=== PATIENT | male | born 1990 | race African-American/Black ===

== ENCOUNTER 2022-09-10 16:40 | Inpatient (IN) | payer OTHER ==
[2022-09-10 17:56] VITALS: BMI 21.2
[2022-09-10] MEDS ORDERED: MAG HYDROX/AL HYDROX/SIMETH 30 ML UNIT-DOSE CUP PO PRN (20:18)
[2022-09-10] MEDS ORDERED: guaiFENesin 200 MG/10 ML 10 ML UNIT-DOSE CUPS PO PRN (20:18)
[2022-09-10] MEDS ORDERED: POLYETHYLENE GLYCOL (HEALTHYLAX) 3350 17 GM PACKET PO PRN (20:18)
[2022-09-10] MEDS ORDERED: BENZOCAINE/MENTHOL (CHLORASEPTIC ) LOZENGE MM PRN (20:18)
[2022-09-10] MEDS ORDERED: MAGNESIUM HYDROX 2400MG/30ML ORAL SUSPENSION 30 ML CUP PO PRN (20:18)
[2022-09-10] MEDS ORDERED: LOPERAMIDE HCL 2 MG CAPSULE PO PRN (20:18)
[2022-09-10] MEDS ORDERED: P-EPHED 60MG/TRIPROLIDI 2.5MG TABLET PO PRN (20:18)
[2022-09-10] MEDS ORDERED: ACETAMINOPHEN 325 MG TABLET (FP) PO PRN (20:18)
[2022-09-10] MEDS ORDERED: IBUPROFEN 400 MG TABLET (FP) PO PRN (20:18)
[2022-09-10] MEDS ORDERED: MELATONIN 5 MG TABLETS PO SCH (22:00)
[2022-09-10] MEDS ORDERED: TUBERCULIN PPD 5 TU/0.1ML VIAL ID ONE (23:53)
[2022-09-11] MEDS: THIAMINE HCL 100 MG TABLET (FP) PO SCH ×2 (00:03→21:15)
[2022-09-11] MEDS: NICOTINE 21 MG/24 HOURS TOPICAL PATCH TD SCH (11:01)
[2022-09-11] MEDS: PRENATAL VITAMINS W/ FOLIC ACID TABLET (FP) PO SCH (11:01)
[2022-09-11 11:04] LABS: EPI CELLS 14 /uL (0-25.1); HYALINE CASTS 6 /uL (0-3.1); PH,URINE 5.5 (5.0-8.0); URINE APPEARANCE CLEAR; URINE BACTERIA 66 /uL (0-1359); URINE BILIRUBIN 1+ (NEGATIVE); URINE COLOR DK YELLOW; URINE GLUCOSE (UA) NEGATIVE (NEGATIVE); URINE KETONE TRACE (NEGATIVE); URINE LEUK ESTERASE NEGATIVE (NEGATIVE); URINE NITRITE NEGATIVE (NEGATIVE); URINE PROTEIN 3+ (NEGATIVE); URINE RBC 28 /uL (0-23.9); URINE WBC 40 /uL (0-25.8)
[2022-09-11 11:06] LABS: MCH 30.7 pg (25.7-33.7); MCHC 32.6 g/dl (32.0-35.9); MEAN CELL VOLUME 94.2 fl (80-96); MEAN PLT VOLUME 10.9 fl (7.5-11.1); PLATELET COUNT 200 10^3/uL (134-434); RBC 4.25 M/mm3 (4.00-5.60); RDW 13.1 % (11.9-15.9); WHITE BLOOD COUNT 9.8 K/mm3 (4.0-10.0)
[2022-09-11 11:12] LABS: ALBUMIN 3.4 g/dl (3.4-5.0); CALCIUM 8.8 mg/dL (8.5-10.1)
[2022-09-11 11:18] LABS: BILIRUBIN,TOTAL 1.1 mg/dL (0.2-1); TOT PROT 7.5 g/dl (6.4-8.2)
[2022-09-11 12:16] LABS: SYPHILIS W/ RPR CONF NON-REACTIVE (NONREACTIVE)
[2022-09-11] MEDS: hydrOXYzine PAMOATE 25 MG CAPSULE (FP) PO PRN (21:15)
[2022-09-11] MEDS: MELATONIN 5 MG TABLETS PO SCH (21:15)
[2022-09-11] MEDS: NICOTINE POLACRILEX 2 MG GUM BC PRN (21:17)
[2022-09-12] MEDS: PRENATAL VITAMINS W/ FOLIC ACID TABLET (FP) PO SCH (09:34)
[2022-09-12] MEDS: NICOTINE 21 MG/24 HOURS TOPICAL PATCH TD SCH (09:34)
[2022-09-12] MEDS: NICOTINE 10 MG CARTRIDGE (INHALER) IH PRN (12:15)
[2022-09-12] MEDS: ARTIFICIAL TEARS (POLYVINYL ALCOHOL) OPTH DROPS OU PRN ×2 (12:15→21:29)
[2022-09-12] MEDS: MELATONIN 5 MG TABLETS PO SCH (21:27)
[2022-09-12] MEDS: THIAMINE HCL 100 MG TABLET (FP) PO SCH (21:27)
[2022-09-12] MEDS: hydrOXYzine PAMOATE 25 MG CAPSULE (FP) PO PRN (21:27)
[2022-09-13] MEDS: PRENATAL VITAMINS W/ FOLIC ACID TABLET (FP) PO SCH (09:53)
[2022-09-13] MEDS: ARTIFICIAL TEARS (POLYVINYL ALCOHOL) OPTH DROPS OU PRN (09:53)
[2022-09-13] MEDS: NICOTINE 21 MG/24 HOURS TOPICAL PATCH TD SCH (09:54)
[2022-09-13] MEDS: NICOTINE 10 MG CARTRIDGE (INHALER) IH PRN (09:55)
[2022-09-13] MEDS: THIAMINE HCL 100 MG TABLET (FP) PO SCH (21:24)
[2022-09-13] MEDS: hydrOXYzine PAMOATE 25 MG CAPSULE (FP) PO PRN (21:24)
[2022-09-13] MEDS: MELATONIN 5 MG TABLETS PO SCH (21:24)
[2022-09-14] MEDS: PRENATAL VITAMINS W/ FOLIC ACID TABLET (FP) PO SCH (09:47)
[2022-09-14] MEDS: NICOTINE 21 MG/24 HOURS TOPICAL PATCH TD SCH (09:47)
[2022-09-14] MEDS: NICOTINE 10 MG CARTRIDGE (INHALER) IH PRN (09:47)
[2022-09-14] MEDS: THIAMINE HCL 100 MG TABLET (FP) PO SCH (21:16)
[2022-09-14] MEDS: MELATONIN 5 MG TABLETS PO SCH (21:16)
[2022-09-14] MEDS: hydrOXYzine PAMOATE 25 MG CAPSULE (FP) PO PRN (21:17)
[2022-09-15] MEDS: NICOTINE 21 MG/24 HOURS TOPICAL PATCH TD SCH (09:33)
[2022-09-15] MEDS: NICOTINE 10 MG CARTRIDGE (INHALER) IH PRN (09:33)
[2022-09-15] MEDS: PRENATAL VITAMINS W/ FOLIC ACID TABLET (FP) PO SCH (09:33)
[2022-09-15] MEDS: hydrOXYzine PAMOATE 25 MG CAPSULE (FP) PO PRN (21:24)
[2022-09-15] MEDS: THIAMINE HCL 100 MG TABLET (FP) PO SCH (21:24)
[2022-09-15] MEDS: MELATONIN 5 MG TABLETS PO SCH (21:25)
[2022-09-15] MEDS: ARTIFICIAL TEARS (POLYVINYL ALCOHOL) OPTH DROPS OU PRN (21:26)
[2022-09-16] MEDS: PRENATAL VITAMINS W/ FOLIC ACID TABLET (FP) PO SCH (09:44)
[2022-09-16] MEDS: ARTIFICIAL TEARS (POLYVINYL ALCOHOL) OPTH DROPS OU PRN (09:44)
[2022-09-16] MEDS: NICOTINE 21 MG/24 HOURS TOPICAL PATCH TD SCH (09:44)
[2022-09-16] MEDS: MELATONIN 5 MG TABLETS PO SCH (21:16)
[2022-09-16] MEDS: THIAMINE HCL 100 MG TABLET (FP) PO SCH (21:16)
[2022-09-16] MEDS: hydrOXYzine PAMOATE 25 MG CAPSULE (FP) PO PRN (21:16)
[2022-09-17] MEDS: PRENATAL VITAMINS W/ FOLIC ACID TABLET (FP) PO SCH (09:36)
[2022-09-17] MEDS: NICOTINE 21 MG/24 HOURS TOPICAL PATCH TD SCH (09:36)
[2022-09-17] MEDS: NICOTINE POLACRILEX 2 MG GUM BC PRN (09:37)
[2022-09-17] MEDS: ARTIFICIAL TEARS (POLYVINYL ALCOHOL) OPTH DROPS OU PRN (09:37)
[2022-09-17] MEDS: MELATONIN 5 MG TABLETS PO SCH (21:29)
[2022-09-17] MEDS: THIAMINE HCL 100 MG TABLET (FP) PO SCH (21:29)
[2022-09-17] MEDS: hydrOXYzine PAMOATE 25 MG CAPSULE (FP) PO PRN (21:30)
[2022-09-18] MEDS: ARTIFICIAL TEARS (POLYVINYL ALCOHOL) OPTH DROPS OU PRN ×2 (06:53→21:43)
[2022-09-18] MEDS: NICOTINE 21 MG/24 HOURS TOPICAL PATCH TD SCH (09:38)
[2022-09-18] MEDS: PRENATAL VITAMINS W/ FOLIC ACID TABLET (FP) PO SCH (09:38)
[2022-09-18] MEDS: NICOTINE 10 MG CARTRIDGE (INHALER) IH PRN ×2 (09:40→21:42)
[2022-09-18] MEDS: THIAMINE HCL 100 MG TABLET (FP) PO SCH (21:42)
[2022-09-18] MEDS: hydrOXYzine PAMOATE 25 MG CAPSULE (FP) PO PRN (21:42)
[2022-09-18] MEDS: MELATONIN 5 MG TABLETS PO SCH (21:42)
[2022-09-19] MEDS: ARTIFICIAL TEARS (POLYVINYL ALCOHOL) OPTH DROPS OU PRN ×2 (09:44→21:20)
[2022-09-19] MEDS: PRENATAL VITAMINS W/ FOLIC ACID TABLET (FP) PO SCH (09:44)
[2022-09-19] MEDS: NICOTINE 21 MG/24 HOURS TOPICAL PATCH TD SCH (09:45)
[2022-09-19] MEDS: hydrOXYzine PAMOATE 25 MG CAPSULE (FP) PO PRN (21:19)
[2022-09-19] MEDS: MELATONIN 5 MG TABLETS PO SCH (21:19)
[2022-09-19] MEDS: THIAMINE HCL 100 MG TABLET (FP) PO SCH (21:19)
[2022-09-20] MEDS: PRENATAL VITAMINS W/ FOLIC ACID TABLET (FP) PO SCH (09:49)
[2022-09-20] MEDS: NICOTINE 21 MG/24 HOURS TOPICAL PATCH TD SCH (09:49)
[2022-09-20] MEDS: ARTIFICIAL TEARS (POLYVINYL ALCOHOL) OPTH DROPS OU PRN (09:49)
[2022-09-20] MEDS: NICOTINE 10 MG CARTRIDGE (INHALER) IH PRN ×2 (09:51→21:26)
[2022-09-20] MEDS: MELATONIN 5 MG TABLETS PO SCH (21:26)
[2022-09-20] MEDS: THIAMINE HCL 100 MG TABLET (FP) PO SCH (21:26)
[2022-09-20] MEDS: hydrOXYzine PAMOATE 25 MG CAPSULE (FP) PO PRN (21:27)
[2022-09-21] MEDS: NICOTINE 10 MG CARTRIDGE (INHALER) IH PRN (09:32)
[2022-09-21] MEDS: PRENATAL VITAMINS W/ FOLIC ACID TABLET (FP) PO SCH (09:32)
[2022-09-21] MEDS: NICOTINE 21 MG/24 HOURS TOPICAL PATCH TD SCH (09:32)
[2022-09-21] MEDS: ARTIFICIAL TEARS (POLYVINYL ALCOHOL) OPTH DROPS OU PRN ×2 (09:32→21:16)
[2022-09-21] MEDS: THIAMINE HCL 100 MG TABLET (FP) PO SCH (21:15)
[2022-09-21] MEDS: hydrOXYzine PAMOATE 25 MG CAPSULE (FP) PO PRN (21:15)
[2022-09-21] MEDS: MELATONIN 5 MG TABLETS PO SCH (21:15)
[2022-09-22] MEDS: PRENATAL VITAMINS W/ FOLIC ACID TABLET (FP) PO SCH (09:36)
[2022-09-22] MEDS: NICOTINE 21 MG/24 HOURS TOPICAL PATCH TD SCH (09:36)
[2022-09-22] MEDS: NICOTINE 10 MG CARTRIDGE (INHALER) IH PRN (09:37)
[2022-09-22] MEDS: ARTIFICIAL TEARS (POLYVINYL ALCOHOL) OPTH DROPS OU PRN ×2 (09:37→21:34)
[2022-09-22] MEDS: THIAMINE HCL 100 MG TABLET (FP) PO SCH (21:31)
[2022-09-22] MEDS: hydrOXYzine PAMOATE 25 MG CAPSULE (FP) PO PRN (21:31)
[2022-09-22] MEDS: MELATONIN 5 MG TABLETS PO SCH (21:31)
[2022-09-23] MEDS: PRENATAL VITAMINS W/ FOLIC ACID TABLET (FP) PO SCH (09:39)
[2022-09-23] MEDS: ARTIFICIAL TEARS (POLYVINYL ALCOHOL) OPTH DROPS OU PRN ×2 (09:39→21:30)
[2022-09-23] MEDS: NICOTINE 21 MG/24 HOURS TOPICAL PATCH TD SCH (09:40)
[2022-09-23] MEDS: NICOTINE 10 MG CARTRIDGE (INHALER) IH PRN (09:40)
[2022-09-23] MEDS: THIAMINE HCL 100 MG TABLET (FP) PO SCH (21:29)
[2022-09-23] MEDS: MELATONIN 5 MG TABLETS PO SCH (21:29)
[2022-09-23] MEDS: hydrOXYzine PAMOATE 25 MG CAPSULE (FP) PO PRN (21:29)
[2022-09-24] MEDS: NICOTINE 21 MG/24 HOURS TOPICAL PATCH TD SCH (09:03)
[2022-09-24] MEDS: ARTIFICIAL TEARS (POLYVINYL ALCOHOL) OPTH DROPS OU PRN ×2 (09:03→21:16)
[2022-09-24] MEDS: PRENATAL VITAMINS W/ FOLIC ACID TABLET (FP) PO SCH (09:03)
[2022-09-24] MEDS ORDERED: NICOTINE 21 MG/24 HOURS TOPICAL PATCH TD PRN (12:39)
[2022-09-24] MEDS: hydrOXYzine PAMOATE 25 MG CAPSULE (FP) PO PRN (21:15)
[2022-09-24] MEDS: THIAMINE HCL 100 MG TABLET (FP) PO SCH (21:15)
[2022-09-24] MEDS: MELATONIN 5 MG TABLETS PO SCH (21:15)
[2022-09-25] MEDS: ARTIFICIAL TEARS (POLYVINYL ALCOHOL) OPTH DROPS OU PRN (09:53)
[2022-09-25] MEDS: PRENATAL VITAMINS W/ FOLIC ACID TABLET (FP) PO SCH (09:53)
[2022-09-25] MEDS: THIAMINE HCL 100 MG TABLET (FP) PO SCH (21:30)
[2022-09-25] MEDS: MELATONIN 5 MG TABLETS PO SCH (21:30)
[2022-09-26 06:35] VITALS: RESP 16
[2022-09-26] MEDS: ARTIFICIAL TEARS (POLYVINYL ALCOHOL) OPTH DROPS OU PRN ×2 (09:45→21:53)
[2022-09-26] MEDS: NICOTINE 10 MG CARTRIDGE (INHALER) IH PRN (09:45)
[2022-09-26] MEDS: PRENATAL VITAMINS W/ FOLIC ACID TABLET (FP) PO SCH (09:45)
[2022-09-26] MEDS: hydrOXYzine PAMOATE 25 MG CAPSULE (FP) PO PRN (21:51)
[2022-09-26] MEDS: MELATONIN 5 MG TABLETS PO SCH (21:51)
[2022-09-26] MEDS: THIAMINE HCL 100 MG TABLET (FP) PO SCH (21:51)
[2022-09-27] MEDS: ARTIFICIAL TEARS (POLYVINYL ALCOHOL) OPTH DROPS OU PRN ×2 (09:30→21:32)
[2022-09-27] MEDS: PRENATAL VITAMINS W/ FOLIC ACID TABLET (FP) PO SCH (09:30)
[2022-09-27] MEDS: NICOTINE 10 MG CARTRIDGE (INHALER) IH PRN (10:30)
[2022-09-27] MEDS: THIAMINE HCL 100 MG TABLET (FP) PO SCH (21:31)
[2022-09-27] MEDS: MELATONIN 5 MG TABLETS PO SCH (21:31)
[2022-09-27] MEDS: hydrOXYzine PAMOATE 25 MG CAPSULE (FP) PO PRN (21:31)
[2022-09-28] MEDS: ARTIFICIAL TEARS (POLYVINYL ALCOHOL) OPTH DROPS OU PRN ×2 (10:01→21:22)
[2022-09-28] MEDS: PRENATAL VITAMINS W/ FOLIC ACID TABLET (FP) PO SCH (10:01)
[2022-09-28] MEDS: NICOTINE POLACRILEX 2 MG GUM BC PRN (17:00)
[2022-09-28] MEDS: NICOTINE 10 MG CARTRIDGE (INHALER) IH PRN (17:00)
[2022-09-28] MEDS: hydrOXYzine PAMOATE 25 MG CAPSULE (FP) PO PRN (21:21)
[2022-09-28] MEDS: THIAMINE HCL 100 MG TABLET (FP) PO SCH (21:21)
[2022-09-28] MEDS: MELATONIN 5 MG TABLETS PO SCH (21:21)
[2022-09-29 07:06] VITALS: BP 120/74; PULSE 73; TEMP 98.4
[2022-09-29] MEDS: PRENATAL VITAMINS W/ FOLIC ACID TABLET (FP) PO SCH (09:33)
[2022-09-29] MEDS: ARTIFICIAL TEARS (POLYVINYL ALCOHOL) OPTH DROPS OU PRN (09:34)
[2022-09-29] MEDS: THIAMINE HCL 100 MG TABLET (FP) PO SCH (21:39)
[2022-09-29] MEDS: MELATONIN 5 MG TABLETS PO SCH (21:39)
[2022-09-29] MEDS: hydrOXYzine PAMOATE 25 MG CAPSULE (FP) PO PRN (21:39)
== END 2022-09-30 08:56 | disposition home or self-care (01) | DRG 772 ==
LOC: YASAS 16:40 → Y3E 23:33
PROVIDERS: ADMIT Allergy & Immunology; ATTEND Psychiatry & Neurology Pain Medicine
PROC: HZ42ZZZ Group Counseling for Substance Abuse Treatment, Cognitive-Behavioral (ICD-10-PCS; principal; 2022-09-10)
DX: F10.20 Alcohol dependence, uncomplicated (principal); F17.210 Nicotine dependence, cigarettes, uncomplicated; F10.282 Alcohol dependence with alcohol-induced sleep disorder; F19.24 Other psychoactive substance dependence with psychoactive substance-induced mood disorder; H11.32 Conjunctival hemorrhage, left eye; Y04.8XXD Assault by other bodily force, subsequent encounter; Z56.0 Unemployment, unspecified; Z59.00 Homelessness unspecified
CPT/HCPCS: 36415; 80053; 81003; 82962; 85027; 86780; 86803; 93005; 93010; C9803-CS; U0003; U0005

== ENCOUNTER 2023-04-17 21:49 | Inpatient (IN) | payer OTHER ==
[2023-04-17 22:39] VITALS: BMI 23.4
[2023-04-17] MEDS ORDERED: IBUPROFEN 600 MG TABLET (FP) PO PRN (22:55)
[2023-04-17] MEDS ORDERED: ACETAMINOPHEN 325 MG TABLET (FP) PO PRN (22:55)
[2023-04-17] MEDS ORDERED: NALOXONE HCL 0.4 MG/ML VIAL IM PRN (22:55)
[2023-04-17] MEDS ORDERED: NALOXONE HCL (KLOXXADO) 8 MG SPRAY NS PRN (22:55)
[2023-04-17] MEDS ORDERED: BENZOCAINE/MENTHOL (CHLORASEPTIC ) LOZENGE MM PRN (22:55)
[2023-04-17] MEDS ORDERED: METHOCARBAMOL 500 MG TABLET PO PRN (22:55)
[2023-04-17] MEDS ORDERED: MAGNESIUM HYDROX 2400MG/30ML ORAL SUSPENSION 30 ML CUP PO PRN (22:55)
[2023-04-17] MEDS ORDERED: NICOTINE POLACRILEX 2 MG GUM BUC PRN (22:55)
[2023-04-17] MEDS ORDERED: LOPERAMIDE HCL 2 MG CAPSULE PO PRN (22:55)
[2023-04-17] MEDS ORDERED: BISMUTH SUBSALICYLATE 524 MG/30 ML PO PRN (22:55)
[2023-04-17] MEDS ORDERED: DICYCLOMINE HCL 10 MG CAPSULE PO PRN (22:55)
[2023-04-17] MEDS ORDERED: ONDANSETRON *ODT* 4 MG TABLET SL PRN (22:55)
[2023-04-17] MEDS ORDERED: POLYETHYLENE GLYCOL (HEALTHYLAX) 3350 17 GM PACKET PO PRN (22:55)
[2023-04-17] MEDS ORDERED: IBUPROFEN 400 MG TABLET (FP) PO PRN (22:55)
[2023-04-17] MEDS ORDERED: MAG HYDROX/AL HYDROX/SIMETH 30 ML UNIT-DOSE CUP PO PRN (22:55)
[2023-04-17] MEDS ORDERED: BENZONATATE 200 MG CAPSULE PO PRN (22:55)
[2023-04-17] MEDS ORDERED: guaiFENesin 600 MG TABLET.ER (FP) PO PRN (22:55)
[2023-04-18] MEDS ORDERED: LORazepam 1 MG TABLET PO PRN (10:05)
[2023-04-18] MEDS: NICOTINE 14 MG/24 HOURS TOPICAL PATCH TD SCH (10:36)
[2023-04-18] MEDS: PRENATAL VITAMINS W/ FOLIC ACID TABLET (FP) PO SCH (10:36)
[2023-04-18] MEDS: hydrOXYzine PAMOATE 25 MG CAPSULE (FP) PO PRN (10:36)
[2023-04-18] MEDS: LORazepam 2 MG TABLET PO SCH ×3 (10:37→22:11)
[2023-04-18 11:42] LABS: POTASSIUM 4.1 mmol/L (3.5-5.1)
[2023-04-18 11:46] LABS: CALCIUM 8.8 mg/dL (8.5-10.1)
[2023-04-18 11:47] LABS: ALBUMIN 3.8 g/dl (3.4-5.0); BLOOD UREA NITROGEN 12.2 mg/dL (7-18)
[2023-04-18 11:48] LABS: HEMATOCRIT 37.8 % (35.4-49); HEMOGLOBIN 12.5 GM/dL (11.7-16.9); MCH 30.9 pg (25.7-33.7); MEAN CELL VOLUME 93.5 fl (80-96); MEAN PLT VOLUME 10.5 fl (7.5-11.1); PLATELET COUNT 166 10^3/uL (134-434); RBC 4.04 M/mm3 (4.00-5.60); RDW 12.9 % (11.9-15.9); WHITE BLOOD COUNT 4.2 K/mm3 (4.0-10.0)
[2023-04-18 11:50] LABS: BILIRUBIN,TOTAL 1.3 mg/dL (0.2-1); CREATININE 0.9 mg/dL (0.55-1.3); TOT PROT 7.4 g/dl (6.4-8.2)
[2023-04-18] MEDS ORDERED: THIAMINE HCL 100 MG TABLET (FP) PO SCH (22:00)
[2023-04-18] MEDS ORDERED: MELATONIN 5 MG TABLETS PO SCH (22:00)
[2023-04-19] MEDS: LORazepam 1 MG TABLET PO SCH ×2 (06:12→11:12)
[2023-04-19] MEDS: hydrOXYzine PAMOATE 25 MG CAPSULE (FP) PO PRN (10:40)
[2023-04-19] MEDS: PRENATAL VITAMINS W/ FOLIC ACID TABLET (FP) PO SCH (10:40)
[2023-04-19] MEDS: NICOTINE 14 MG/24 HOURS TOPICAL PATCH TD SCH (10:40)
[2023-04-19 13:41] VITALS: RESP 18
[2023-04-19 17:46] VITALS: BP 149/82; PULSE 64; TEMP 98.7
[2023-04-20] MEDS ORDERED: LORazepam 0.5 MG TABLET PO PRN
[2023-04-20] MEDS ORDERED: LORazepam 0.5 MG TABLET PO SCH (05:00)
[2023-04-21] MEDS ORDERED: LORazepam 0.5 MG TABLET PO ONE (05:00)
== END 2023-04-19 13:22 | disposition home or self-care (01) | DRG 775 ==
LOC: YASAS 21:49 → Y6N 22:56
PROVIDERS: ADMIT Allergy & Immunology; ATTEND Allergy & Immunology
PROC: HZ2ZZZZ Detoxification Services for Substance Abuse Treatment (ICD-10-PCS; principal; 2023-04-17)
DX: F10.230 Alcohol dependence with withdrawal, uncomplicated (principal); F10.220 Alcohol dependence with intoxication, uncomplicated; F17.213 Nicotine dependence, cigarettes, with withdrawal
CPT/HCPCS: 36415; 80053; 85027; 86780; 87635; 87811

== ENCOUNTER 2023-05-27 08:42 | Inpatient (IN) | payer OTHER ==
[2023-05-27 09:25] VITALS: BMI 22.1
[2023-05-27] MEDS ORDERED: DICYCLOMINE HCL 10 MG CAPSULE PO PRN (09:31)
[2023-05-27] MEDS ORDERED: LOPERAMIDE HCL 2 MG CAPSULE PO PRN (09:31)
[2023-05-27] MEDS ORDERED: BENZONATATE 200 MG CAPSULE PO PRN (09:31)
[2023-05-27] MEDS ORDERED: guaiFENesin 600 MG TABLET.ER (FP) PO PRN (09:31)
[2023-05-27] MEDS ORDERED: ACETAMINOPHEN 325 MG TABLET (FP) PO PRN (09:31)
[2023-05-27] MEDS ORDERED: NICOTINE POLACRILEX 2 MG GUM BUC PRN (09:31)
[2023-05-27] MEDS ORDERED: IBUPROFEN 600 MG TABLET (FP) PO PRN (09:31)
[2023-05-27] MEDS ORDERED: IBUPROFEN 400 MG TABLET (FP) PO PRN (09:31)
[2023-05-27] MEDS ORDERED: BISMUTH SUBSALICYLATE 524 MG/30 ML PO PRN (09:31)
[2023-05-27] MEDS ORDERED: ONDANSETRON *ODT* 4 MG TABLET SL PRN (09:31)
[2023-05-27] MEDS ORDERED: MAG HYDROX/AL HYDROX/SIMETH 30 ML UNIT-DOSE CUP PO PRN (09:31)
[2023-05-27] MEDS ORDERED: BENZOCAINE/MENTHOL (CHLORASEPTIC ) LOZENGE MM PRN (09:31)
[2023-05-27] MEDS ORDERED: POLYETHYLENE GLYCOL (HEALTHYLAX) 3350 17 GM PACKET PO PRN (09:31)
[2023-05-27] MEDS ORDERED: MAGNESIUM HYDROX 2400MG/30ML ORAL SUSPENSION 30 ML CUP PO PRN (09:31)
[2023-05-27] MEDS ORDERED: diazePAM 5 MG TABLET ONE (10:19)
[2023-05-27] MEDS ORDERED: PRENATAL VITAMINS W/ FOLIC ACID TABLET (FP) PO ONE (10:19)
[2023-05-27] MEDS: diazePAM 5 MG TABLET PO SCH ×3 (10:22→22:16)
[2023-05-27] MEDS: PRENATAL VITAMINS W/ FOLIC ACID TABLET (FP) PO SCH (10:22)
[2023-05-27] MEDS: diazePAM 5 MG TABLET PO PRN (12:55)
[2023-05-27] MEDS ORDERED: cloNIDine HCL 0.1 MG TABLET PO ONE (13:00)
[2023-05-27] MEDS ORDERED: THIAMINE HCL 100 MG TABLET (FP) PO SCH (22:00)
[2023-05-27] MEDS ORDERED: MELATONIN 5 MG TABLETS PO SCH (22:00)
[2023-05-28] MEDS: diazePAM 5 MG TABLET PO SCH ×3 (05:12→18:20)
[2023-05-28] MEDS: PRENATAL VITAMINS W/ FOLIC ACID TABLET (FP) PO SCH (10:30)
[2023-05-28 11:57] LABS: HEMOGLOBIN 12.9 GM/dL (11.7-16.9); MCH 31.9 pg (25.7-33.7); MCHC 33.9 g/dl (32.0-35.9); MEAN CELL VOLUME 94.1 fl (80-96); MEAN PLT VOLUME 9.7 fl (7.5-11.1); PLATELET COUNT 232 10^3/uL (134-434); RBC 4.03 M/mm3 (4.00-5.60); RDW 13.4 % (11.9-15.9); WHITE BLOOD COUNT 3.5 K/mm3 (4.0-10.0)
[2023-05-28 12:03] LABS: POTASSIUM 4.5 mmol/L (3.5-5.1)
[2023-05-28 12:18] LABS: CALCIUM 8.9 mg/dL (8.5-10.1)
[2023-05-28 12:19] LABS: ALBUMIN 3.4 g/dl (3.4-5.0); BLOOD UREA NITROGEN 9.7 mg/dL (7-18)
[2023-05-28 12:21] LABS: CREATININE 0.9 mg/dL (0.55-1.3)
[2023-05-28 12:23] LABS: BILIRUBIN,TOTAL 1.3 mg/dL (0.2-1); TOT PROT 7.2 g/dl (6.4-8.2)
[2023-05-28 12:56] VITALS: RESP 18
[2023-05-28] MEDS: diazePAM 5 MG TABLET PO PRN (13:14)
[2023-05-28 18:16] VITALS: BP 138/65; PULSE 63; TEMP 97.6
[2023-05-29] MEDS ORDERED: diazePAM 5 MG TABLET PO SCH (06:00)
[2023-05-30] MEDS ORDERED: diazePAM 5 MG TABLET PO SCH (06:00)
[2023-05-31] MEDS ORDERED: diazePAM 5 MG TABLET PO ONE (06:00)
== END 2023-05-28 18:27 | disposition left against medical advice (07) | DRG 770 ==
LOC: YASAS 08:42 → Y6N 09:54
PROVIDERS: ADMIT Allergy & Immunology; ATTEND Surgery
PROC: HZ2ZZZZ Detoxification Services for Substance Abuse Treatment (ICD-10-PCS; principal; 2023-05-27)
DX: F10.230 Alcohol dependence with withdrawal, uncomplicated (principal); F17.210 Nicotine dependence, cigarettes, uncomplicated; R74.01 Elevation of levels of liver transaminase levels
CPT/HCPCS: 36415; 80053; 85027; 86780; 87635; 87811; Q0162

== ENCOUNTER 2023-06-05 23:42 | Inpatient (IN) | payer OTHER ==
[2023-06-06 00:35] VITALS: BMI 20.5
[2023-06-06] MEDS ORDERED: POLYETHYLENE GLYCOL (HEALTHYLAX) 3350 17 GM PACKET PO PRN (01:38)
[2023-06-06] MEDS ORDERED: DICYCLOMINE HCL 10 MG CAPSULE PO PRN (01:38)
[2023-06-06] MEDS ORDERED: BENZOCAINE/MENTHOL (CHLORASEPTIC ) LOZENGE MM PRN (01:38)
[2023-06-06] MEDS ORDERED: BISMUTH SUBSALICYLATE 524 MG/30 ML PO PRN (01:38)
[2023-06-06] MEDS ORDERED: guaiFENesin 600 MG TABLET.ER (FP) PO PRN (01:38)
[2023-06-06] MEDS ORDERED: ACETAMINOPHEN 325 MG TABLET (FP) PO PRN (01:38)
[2023-06-06] MEDS ORDERED: LOPERAMIDE HCL 2 MG CAPSULE PO PRN (01:38)
[2023-06-06] MEDS ORDERED: IBUPROFEN 400 MG TABLET (FP) PO PRN (01:38)
[2023-06-06] MEDS ORDERED: MAGNESIUM HYDROX 2400MG/30ML ORAL SUSPENSION 30 ML CUP PO PRN (01:38)
[2023-06-06] MEDS ORDERED: IBUPROFEN 600 MG TABLET (FP) PO PRN (01:38)
[2023-06-06] MEDS ORDERED: BENZONATATE 200 MG CAPSULE PO PRN (01:38)
[2023-06-06] MEDS ORDERED: NALOXONE HCL (KLOXXADO) 8 MG SPRAY NS PRN (01:38)
[2023-06-06] MEDS ORDERED: MAG HYDROX/AL HYDROX/SIMETH 30 ML UNIT-DOSE CUP PO PRN (01:38)
[2023-06-06] MEDS ORDERED: NALOXONE HCL 0.4 MG/ML VIAL IM PRN (01:38)
[2023-06-06] MEDS: PRENATAL VITAMINS W/ FOLIC ACID TABLET (FP) PO SCH (10:51)
[2023-06-06] MEDS: ONDANSETRON *ODT* 4 MG TABLET SL PRN ×2 (11:13→20:30)
[2023-06-06] MEDS: hydrOXYzine PAMOATE 25 MG CAPSULE (FP) PO PRN ×2 (11:13→18:22)
[2023-06-06] MEDS: METHOCARBAMOL 500 MG TABLET PO PRN (11:13)
[2023-06-06] MEDS ORDERED: THIAMINE HCL 100 MG TABLET (FP) PO SCH (22:00)
[2023-06-06] MEDS ORDERED: MELATONIN 5 MG TABLETS PO SCH (22:00)
[2023-06-07 06:17] VITALS: RESP 18
[2023-06-07 09:36] VITALS: TEMP 97.7
[2023-06-07] MEDS: hydrOXYzine PAMOATE 25 MG CAPSULE (FP) PO PRN (09:48)
[2023-06-07] MEDS: PRENATAL VITAMINS W/ FOLIC ACID TABLET (FP) PO SCH (09:48)
[2023-06-07] MEDS: METHOCARBAMOL 500 MG TABLET PO PRN (09:48)
[2023-06-07 10:45] VITALS: BP 130/80; PULSE 70
[2023-06-07 13:03] LABS: HEMOGLOBIN 14.3 GM/dL (11.7-16.9); MCH 32.4 pg (25.7-33.7); MCHC 34.9 g/dl (32.0-35.9); MEAN CELL VOLUME 92.9 fl (80-96); MEAN PLT VOLUME 9.8 fl (7.5-11.1); PLATELET COUNT 204 10^3/uL (134-434); RBC 4.41 M/mm3 (4.00-5.60); WHITE BLOOD COUNT 3.3 K/mm3 (4.0-10.0)
[2023-06-07 13:05] LABS: POTASSIUM 3.9 mmol/L (3.5-5.1)
[2023-06-07 13:10] LABS: CALCIUM 9.3 mg/dL (8.5-10.1)
[2023-06-07 13:11] LABS: ALBUMIN 3.7 g/dl (3.4-5.0); BLOOD UREA NITROGEN 9.3 mg/dL (7-18)
[2023-06-07 13:14] LABS: BILIRUBIN,TOTAL 1.9 mg/dL (0.2-1); TOT PROT 7.9 g/dl (6.4-8.2)
== END 2023-06-07 10:46 | disposition home or self-care (01) | DRG 775 ==
LOC: YASAS 23:42 → Y6N 06-06 02:14
PROVIDERS: ADMIT Allergy & Immunology; ATTEND Surgery
PROC: HZ2ZZZZ Detoxification Services for Substance Abuse Treatment (ICD-10-PCS; principal; 2023-06-06)
DX: F10.20 Alcohol dependence, uncomplicated (principal); F17.213 Nicotine dependence, cigarettes, with withdrawal
CPT/HCPCS: 36415; 80053; 85027; 87635; 87811; 93005; 93010; Q0162

== ENCOUNTER 2024-01-03 02:12 | Inpatient (IN) | payer OTHER ==
[2024-01-03 02:46] VITALS: BMI 25.5
[2024-01-03] MEDS ORDERED: DICYCLOMINE HCL 10 MG CAPSULE PO PRN (03:32)
[2024-01-03] MEDS ORDERED: guaiFENesin 600 MG TABLET.ER (FP) PO PRN (03:32)
[2024-01-03] MEDS ORDERED: NALOXONE HCL (KLOXXADO) 8 MG SPRAY NS PRN (03:32)
[2024-01-03] MEDS ORDERED: MAGNESIUM HYDROX 2400MG/30ML ORAL SUSPENSION 30 ML CUP PO PRN (03:32)
[2024-01-03] MEDS ORDERED: IBUPROFEN 600 MG TABLET (FP) PO PRN (03:32)
[2024-01-03] MEDS ORDERED: NICOTINE POLACRILEX 2 MG GUM BUC PRN (03:32)
[2024-01-03] MEDS ORDERED: METHOCARBAMOL 500 MG TABLET PO PRN (03:32)
[2024-01-03] MEDS ORDERED: BISMUTH SUBSALICYLATE 524 MG/30 ML PO PRN (03:32)
[2024-01-03] MEDS ORDERED: MAG HYDROX/AL HYDROX/SIMETH 30 ML UNIT-DOSE CUP PO PRN (03:32)
[2024-01-03] MEDS ORDERED: BENZONATATE 200 MG CAPSULE PO PRN (03:32)
[2024-01-03] MEDS ORDERED: POLYETHYLENE GLYCOL (HEALTHYLAX) 3350 17 GM PACKET PO PRN (03:32)
[2024-01-03] MEDS ORDERED: BENZOCAINE/MENTHOL (CHLORASEPTIC ) LOZENGE MM PRN (03:32)
[2024-01-03] MEDS ORDERED: ACETAMINOPHEN 325 MG TABLET (FP) PO PRN (03:32)
[2024-01-03] MEDS ORDERED: LOPERAMIDE HCL 2 MG CAPSULE PO PRN (03:32)
[2024-01-03] MEDS ORDERED: ONDANSETRON *ODT* 4 MG TABLET SL PRN (03:32)
[2024-01-03] MEDS ORDERED: NALOXONE HCL 0.4 MG/ML VIAL IM PRN (03:32)
[2024-01-03] MEDS ORDERED: IBUPROFEN 400 MG TABLET (FP) PO PRN (03:32)
[2024-01-03] MEDS ORDERED: hydrOXYzine PAMOATE 25 MG CAPSULE (FP) PO PRN (03:32)
[2024-01-03 10:08] VITALS: BP 135/72; PULSE 89; RESP 18; TEMP 98
[2024-01-03] MEDS: PRENATAL VITAMINS W/ FOLIC ACID TABLET (FP) PO SCH (10:30)
[2024-01-03] MEDS: NICOTINE 14 MG/24 HOURS TOPICAL PATCH TD SCH (10:30)
[2024-01-03] MEDS ORDERED: MELATONIN 5 MG TABLETS PO SCH (22:00)
[2024-01-03] MEDS ORDERED: THIAMINE HCL 100 MG TABLET (FP) PO SCH (22:00)
== END 2024-01-03 10:35 | disposition home or self-care (01) | DRG 775 ==
LOC: YASAS 02:12 → Y6N 03:38
PROVIDERS: ADMIT Allergy & Immunology; ATTEND Allergy & Immunology
PROC: HZ2ZZZZ Detoxification Services for Substance Abuse Treatment (ICD-10-PCS; principal; 2024-01-03)
DX: F10.20 Alcohol dependence, uncomplicated (principal); F17.213 Nicotine dependence, cigarettes, with withdrawal; Z56.0 Unemployment, unspecified; Z59.00 Homelessness unspecified
CPT/HCPCS: 36415; 80307; 93005; 93010

== ENCOUNTER 2024-01-04 00:40 | Inpatient (IN) | payer OTHER ==
[2024-01-04 01:10] VITALS: BMI 24.1
[2024-01-04] MEDS ORDERED: IBUPROFEN 600 MG TABLET (FP) PO PRN (01:49)
[2024-01-04] MEDS ORDERED: NICOTINE POLACRILEX 2 MG GUM BUC PRN (01:49)
[2024-01-04] MEDS ORDERED: BENZONATATE 200 MG CAPSULE PO PRN (01:49)
[2024-01-04] MEDS ORDERED: NALOXONE HCL 0.4 MG/ML VIAL IM PRN (01:49)
[2024-01-04] MEDS ORDERED: BENZOCAINE/MENTHOL (CHLORASEPTIC ) LOZENGE MM PRN (01:49)
[2024-01-04] MEDS ORDERED: MAGNESIUM HYDROX 2400MG/30ML ORAL SUSPENSION 30 ML CUP PO PRN (01:49)
[2024-01-04] MEDS ORDERED: LOPERAMIDE HCL 2 MG CAPSULE PO PRN (01:49)
[2024-01-04] MEDS ORDERED: POLYETHYLENE GLYCOL (HEALTHYLAX) 3350 17 GM PACKET PO PRN (01:49)
[2024-01-04] MEDS ORDERED: IBUPROFEN 400 MG TABLET (FP) PO PRN (01:49)
[2024-01-04] MEDS ORDERED: MAG HYDROX/AL HYDROX/SIMETH 30 ML UNIT-DOSE CUP PO PRN (01:49)
[2024-01-04] MEDS ORDERED: NALOXONE HCL (KLOXXADO) 8 MG SPRAY NS PRN (01:49)
[2024-01-04] MEDS ORDERED: ACETAMINOPHEN 325 MG TABLET (FP) PO PRN (01:49)
[2024-01-04] MEDS ORDERED: BISMUTH SUBSALICYLATE 524 MG/30 ML PO PRN (01:49)
[2024-01-04] MEDS ORDERED: guaiFENesin 600 MG TABLET.ER (FP) PO PRN (01:49)
[2024-01-04] MEDS ORDERED: METHOCARBAMOL 500 MG TABLET PO PRN (01:49)
[2024-01-04] MEDS ORDERED: DICYCLOMINE HCL 10 MG CAPSULE PO PRN (01:49)
[2024-01-04 08:55] VITALS: BP 145/80; PULSE 87; RESP 18; TEMP 98.7
[2024-01-04] MEDS: NICOTINE 14 MG/24 HOURS TOPICAL PATCH TD SCH (09:41)
[2024-01-04] MEDS: PRENATAL VITAMINS W/ FOLIC ACID TABLET (FP) PO SCH (09:41)
[2024-01-04] MEDS ORDERED: THIAMINE 100 MG TABLET PO SCH (22:00)
[2024-01-04] MEDS ORDERED: MELATONIN 5 MG TABLETS PO SCH (22:00)
== END 2024-01-04 10:00 | disposition other institution (70) | DRG 775 ==
LOC: YASAS 00:40 → Y6N 02:29
PROVIDERS: ADMIT Allergy & Immunology; ATTEND Allergy & Immunology
PROC: HZ2ZZZZ Detoxification Services for Substance Abuse Treatment (ICD-10-PCS; principal; 2024-01-04)
DX: F10.220 Alcohol dependence with intoxication, uncomplicated (principal); F10.20 Alcohol dependence, uncomplicated; F17.210 Nicotine dependence, cigarettes, uncomplicated; F19.24 Other psychoactive substance dependence with psychoactive substance-induced mood disorder; R45.89 Other symptoms and signs involving emotional state; Z91.199 Patient's noncompliance with other medical treatment and regimen due to unspecified reason

== ENCOUNTER 2024-01-13 01:35 | Inpatient (IN) | payer OTHER ==
[2024-01-13 02:04] VITALS: RESP 18; BMI 23.7
[2024-01-13] MEDS ORDERED: POLYETHYLENE GLYCOL (HEALTHYLAX) 3350 17 GM PACKET PO PRN (02:28)
[2024-01-13] MEDS ORDERED: hydrOXYzine PAMOATE 25 MG CAPSULE (FP) PO PRN (02:28)
[2024-01-13] MEDS ORDERED: LOPERAMIDE HCL 2 MG CAPSULE PO PRN (02:28)
[2024-01-13] MEDS ORDERED: NALOXONE HCL (KLOXXADO) 8 MG SPRAY NS PRN (02:28)
[2024-01-13] MEDS ORDERED: guaiFENesin 600 MG TABLET.ER (FP) PO PRN (02:28)
[2024-01-13] MEDS ORDERED: NALOXONE HCL 0.4 MG/ML VIAL IM PRN (02:28)
[2024-01-13] MEDS ORDERED: BISMUTH SUBSALICYLATE 524 MG/30 ML PO PRN (02:28)
[2024-01-13] MEDS ORDERED: BENZONATATE 200 MG CAPSULE PO PRN (02:28)
[2024-01-13] MEDS ORDERED: ONDANSETRON *ODT* 4 MG TABLET SL PRN (02:28)
[2024-01-13] MEDS ORDERED: BENZOCAINE/MENTHOL (CHLORASEPTIC ) LOZENGE MM PRN (02:28)
[2024-01-13] MEDS ORDERED: ACETAMINOPHEN 325 MG TABLET (FP) PO PRN (02:28)
[2024-01-13] MEDS ORDERED: MAGNESIUM HYDROX 2400MG/30ML ORAL SUSPENSION 30 ML CUP PO PRN (02:28)
[2024-01-13] MEDS ORDERED: MAG HYDROX/AL HYDROX/SIMETH 30 ML UNIT-DOSE CUP PO PRN (02:28)
[2024-01-13] MEDS ORDERED: DICYCLOMINE HCL 10 MG CAPSULE PO PRN (02:28)
[2024-01-13] MEDS ORDERED: IBUPROFEN 400 MG TABLET (FP) PO PRN (02:28)
[2024-01-13 09:15] VITALS: BP 103/62; PULSE 90; TEMP 98
[2024-01-13] MEDS: PRENATAL VITAMINS W/ FOLIC ACID TABLET (FP) PO SCH (10:15)
[2024-01-13] MEDS: IBUPROFEN 600 MG TABLET (FP) PO PRN (10:15)
[2024-01-13] MEDS ORDERED: THIAMINE 100 MG TABLET PO SCH (22:00)
[2024-01-13] MEDS ORDERED: MELATONIN 5 MG TABLETS PO SCH (22:00)
== END 2024-01-13 10:54 | disposition home or self-care (01) | DRG 775 ==
LOC: YASAS 01:35 → Y3N 04:06
PROVIDERS: ADMIT Allergy & Immunology; ATTEND Allergy & Immunology
PROC: HZ2ZZZZ Detoxification Services for Substance Abuse Treatment (ICD-10-PCS; principal; 2024-01-13)
DX: F10.220 Alcohol dependence with intoxication, uncomplicated (principal); F10.20 Alcohol dependence, uncomplicated; F19.24 Other psychoactive substance dependence with psychoactive substance-induced mood disorder; Z91.199 Patient's noncompliance with other medical treatment and regimen due to unspecified reason
CPT/HCPCS: 36415; 80305; 80307; 93005; 93010

== ENCOUNTER 2024-11-29 16:19 | Inpatient (IN) | payer OTHER ==
[2024-11-29 16:48] VITALS: BMI 24.3
[2024-11-29] MEDS ORDERED: POLYETHYLENE GLYCOL (HEALTHYLAX) 3350 17 GM PACKET PO PRN (17:04)
[2024-11-29] MEDS ORDERED: BENZONATATE 200 MG CAPSULE PO PRN (17:04)
[2024-11-29] MEDS ORDERED: guaiFENesin 600 MG TABLET.ER (FP) PO PRN (17:04)
[2024-11-29] MEDS ORDERED: IBUPROFEN 400 MG TABLET (FP) PO PRN (17:04)
[2024-11-29] MEDS ORDERED: BISMUTH SUBSALICYLATE 524 MG/30 ML PO PRN (17:04)
[2024-11-29] MEDS ORDERED: NICOTINE POLACRILEX 2 MG LOZENGE BC PRN (17:04)
[2024-11-29] MEDS ORDERED: MAGNESIUM HYDROX 2400MG/30ML ORAL SUSPENSION 30 ML CUP PO PRN (17:04)
[2024-11-29] MEDS ORDERED: IBUPROFEN 600 MG TABLET (FP) PO PRN (17:04)
[2024-11-29] MEDS ORDERED: BENZOCAINE/MENTHOL (CHLORASEPTIC ) LOZENGE MM PRN (17:04)
[2024-11-29] MEDS ORDERED: LOPERAMIDE HCL 2 MG CAPSULE PO PRN (17:04)
[2024-11-29] MEDS ORDERED: DICYCLOMINE HCL 10 MG CAPSULE PO PRN (17:04)
[2024-11-29] MEDS ORDERED: ACETAMINOPHEN 325 MG TABLET (FP) PO PRN (17:04)
[2024-11-29] MEDS ORDERED: MAG HYDROX/AL HYDROX/SIMETH 30 ML UNIT-DOSE CUP PO PRN (17:04)
[2024-11-29] MEDS ORDERED: NALOXONE (NARCAN) HCL 4 MG/0.1 ML SPRAY NS PRN (17:04)
[2024-11-29] MEDS ORDERED: ONDANSETRON *ODT* 4 MG TABLET SL PRN (17:04)
[2024-11-29] MEDS ORDERED: cloNIDine HCL 0.1 MG TABLET ONE (18:44)
[2024-11-29] MEDS: MELATONIN 5 MG TABLETS PO SCH (23:11)
[2024-11-29] MEDS: THIAMINE 100 MG TABLET PO SCH (23:12)
[2024-11-29] MEDS: METHOCARBAMOL 500 MG TABLET PO PRN (23:12)
[2024-11-30] MEDS ORDERED: chlordiazePOXIDE HCL 25 MG CAPSULE PO PRN (08:38)
[2024-11-30] MEDS: PRENATAL VITAMINS W/ FOLIC ACID TABLET (FP) PO SCH (10:33)
[2024-11-30] MEDS: chlordiazePOXIDE HCL 25 MG CAPSULE PO SCH (10:34)
[2024-11-30 11:00] LABS: HEMATOCRIT 36.7 % (40.1-51.0); HEMOGLOBIN 12.1 g/dL (13.7-17.5); MEAN CELL VOLUME 89.3 fl (79.0-92.2); MEAN PLT VOLUME 11.1 fl (9.4-12.4); PLATELET COUNT # 308 x10^3/uL (163-337); RDW 12.1 % (12.0-15.6)
[2024-11-30 11:04] LABS: POTASSIUM 4.2 mmol/L (3.5-5.1)
[2024-11-30 11:11] LABS: ALBUMIN 3.8 g/dl (3.4-5.0); BLOOD UREA NITROGEN 10.4 mg/dL (7-18)
[2024-11-30 11:14] LABS: CREATININE 0.8 mg/dL (0.55-1.3)
[2024-11-30 11:15] LABS: BILIRUBIN,TOTAL 1.3 mg/dL (0.2-1)
[2024-11-30 11:16] LABS: TOT PROT 7.3 g/dl (6.4-8.2)
[2024-11-30 12:05] LABS: HIV INTERPRETATION NEGATIVE (NEGATIVE)
[2024-11-30] MEDS: NICOTINE POLACRILEX 2 MG GUM BUC PRN (13:42)
[2024-11-30] MEDS: SUVOREXANT 10 MG TABLET PO PRN (23:04)
[2024-12-01] MEDS: chlordiazePOXIDE HCL 25 MG CAPSULE PO SCH (05:55)
[2024-12-01 09:22] VITALS: BP 114/74; PULSE 73; RESP 16; TEMP 98.4
[2024-12-01] MEDS: hydrOXYzine PAMOATE 25 MG CAPSULE (FP) PO PRN (10:16)
[2024-12-02] MEDS ORDERED: chlordiazePOXIDE HCL 10 MG CAPSULE PO PRN
[2024-12-02] MEDS ORDERED: chlordiazePOXIDE HCL 10 MG CAPSULE PO SCH (05:00)
[2024-12-03] MEDS ORDERED: chlordiazePOXIDE HCL 10 MG CAPSULE PO SCH (05:00)
[2024-12-04] MEDS ORDERED: chlordiazePOXIDE HCL 10 MG CAPSULE PO ONE (05:00)
== END 2024-12-01 12:00 | disposition home or self-care (01) | DRG 775 ==
LOC: YASAS 16:19 → Y6N 18:26
PROVIDERS: ADMIT Allergy & Immunology; ATTEND Allergy & Immunology
PROC: HZ2ZZZZ Detoxification Services for Substance Abuse Treatment (ICD-10-PCS; principal; 2024-11-29)
DX: F10.230 Alcohol dependence with withdrawal, uncomplicated (principal); F17.210 Nicotine dependence, cigarettes, uncomplicated; F10.220 Alcohol dependence with intoxication, uncomplicated; F10.282 Alcohol dependence with alcohol-induced sleep disorder; F10.24 Alcohol dependence with alcohol-induced mood disorder; Z56.0 Unemployment, unspecified; Z59.00 Homelessness unspecified
CPT/HCPCS: 36415; 80053; 80305; 80307; 85027; 86780; 86803; 87389; 93005; 93010

== ENCOUNTER 2025-01-03 21:37 | Inpatient (IN) | payer OTHER ==
[2025-01-03 22:11] VITALS: BMI 22.8
[2025-01-03] MEDS ORDERED: chlordiazePOXIDE HCL 25 MG CAPSULE PO PRN (22:16)
[2025-01-03] MEDS ORDERED: DICYCLOMINE HCL 10 MG CAPSULE PO PRN (22:18)
[2025-01-03] MEDS ORDERED: guaiFENesin 600 MG TABLET.ER (FP) PO PRN (22:18)
[2025-01-03] MEDS ORDERED: LOPERAMIDE HCL 2 MG CAPSULE PO PRN (22:18)
[2025-01-03] MEDS ORDERED: IBUPROFEN 400 MG TABLET (FP) PO PRN (22:18)
[2025-01-03] MEDS ORDERED: NICOTINE POLACRILEX 2 MG LOZENGE BC PRN (22:18)
[2025-01-03] MEDS ORDERED: MAG HYDROX/AL HYDROX/SIMETH 30 ML UNIT-DOSE CUP PO PRN (22:18)
[2025-01-03] MEDS ORDERED: POLYETHYLENE GLYCOL (HEALTHYLAX) 3350 17 GM PACKET PO PRN (22:18)
[2025-01-03] MEDS ORDERED: BENZONATATE 200 MG CAPSULE PO PRN (22:18)
[2025-01-03] MEDS ORDERED: ONDANSETRON *ODT* 4 MG TABLET SL PRN (22:18)
[2025-01-03] MEDS ORDERED: BENZOCAINE/MENTHOL (CHLORASEPTIC ) LOZENGE MM PRN (22:18)
[2025-01-03] MEDS ORDERED: NALOXONE (NARCAN) HCL 4 MG/0.1 ML SPRAY NS PRN (22:18)
[2025-01-03] MEDS ORDERED: MAGNESIUM HYDROX 2400MG/30ML ORAL SUSPENSION 30 ML CUP PO PRN (22:18)
[2025-01-03] MEDS ORDERED: BISMUTH SUBSALICYLATE 524 MG/30 ML PO PRN (22:18)
[2025-01-03] MEDS ORDERED: MELATONIN 5 MG TABLETS ONE (22:52)
[2025-01-03] MEDS ORDERED: chlordiazePOXIDE HCL 25 MG CAPSULE ONE (22:52)
[2025-01-03] MEDS ORDERED: propRANOLol HCL 10 MG TABLET ONE (22:52)
[2025-01-03] MEDS: chlordiazePOXIDE HCL 25 MG CAPSULE PO SCH (22:57)
[2025-01-03] MEDS: propRANOLol HCL 10 MG TABLET PO ONE (22:57)
[2025-01-03] MEDS: METHOCARBAMOL 500 MG TABLET PO PRN (23:47)
[2025-01-04] MEDS: BACITRACIN 0.9 GM PACKET TP SCH (00:21)
[2025-01-04] MEDS: IBUPROFEN 600 MG TABLET (FP) PO PRN ×2 (09:17→15:13)
[2025-01-04] MEDS: NICOTINE POLACRILEX 2 MG GUM BUC PRN (09:18)
[2025-01-04] MEDS: PRENATAL VITAMINS W/ FOLIC ACID TABLET (FP) PO SCH (09:22)
[2025-01-04 11:11] LABS: HEMATOCRIT 35.5 % (40.1-51.0); HEMOGLOBIN 11.6 g/dL (13.7-17.5); MCHC 32.7 g/dl (32.3-36.5); MEAN CELL VOLUME 96.2 fl (79.0-92.2); PLATELET COUNT 373 x10^3/uL (163-337); RDW 13.4 % (12.0-15.6)
[2025-01-04 11:21] LABS: POTASSIUM 3.9 mmol/L (3.5-5.1)
[2025-01-04] MEDS ORDERED: KETOROLAC TROMETHAMINE 10 MG TABLET PO ONE (11:45)
[2025-01-04 11:48] LABS: ALBUMIN 3.3 g/dl (3.4-5.0); BLOOD UREA NITROGEN 6.9 mg/dL (7-18); CALCIUM 9.4 mg/dL (8.5-10.1)
[2025-01-04 11:52] LABS: CREATININE 0.7 mg/dL (0.55-1.3)
[2025-01-04 11:53] LABS: BILIRUBIN,TOTAL 0.9 mg/dL (0.2-1)
[2025-01-04] MEDS ORDERED: IBUPROFEN 400 MG TABLET (FP) PO PRN (11:55)
[2025-01-04 13:29] LABS: HIV INTERPRETATION NEGATIVE (NEGATIVE)
[2025-01-04 13:30] LABS: HCV DIAGNOSTIC IN-HOUSE W/RFLX NON-REACTIVE (NONREACTIVE)
[2025-01-04] MEDS: NALTREXONE HCL 50 MG TABLET PO ONE (14:02)
[2025-01-04] MEDS ORDERED: MELATONIN 5 MG TABLETS PO SCH (22:00)
[2025-01-04] MEDS: THIAMINE 100 MG TABLET PO SCH (22:07)
[2025-01-04] MEDS: SUVOREXANT 10 MG TABLET PO PRN (22:08)
[2025-01-04] MEDS: CEPHALEXIN MONOHYDRATE 500 MG CAPSULE (UD) PO SCH (22:08)
[2025-01-05] MEDS: propRANOLol HCL 10 MG TABLET PO ONE (00:14)
[2025-01-05] MEDS: chlordiazePOXIDE HCL 25 MG CAPSULE PO SCH (05:37)
[2025-01-05] MEDS: KETOROLAC TROMETHAMINE 30 MG/1 ML VIAL IM ONE ×2 (09:30→12:00)
[2025-01-05] MEDS: NALTREXONE HCL 50 MG TABLET PO SCH (09:33)
[2025-01-05] MEDS ORDERED: KETOROLAC TROMETHAMINE 10 MG TABLET PO PRN (11:18)
[2025-01-05] MEDS: ACETAMINOPHEN 325 MG TABLET (FP) PO PRN (11:29)
[2025-01-06] MEDS ORDERED: chlordiazePOXIDE HCL 10 MG CAPSULE PO PRN
[2025-01-06] MEDS: chlordiazePOXIDE HCL 10 MG CAPSULE PO SCH (05:32)
[2025-01-06 08:46] VITALS: RESP 18
[2025-01-06 12:39] VITALS: BP 136/86; PULSE 80; TEMP 97.6
[2025-01-07] MEDS ORDERED: chlordiazePOXIDE HCL 10 MG CAPSULE PO SCH (05:00)
[2025-01-08] MEDS ORDERED: chlordiazePOXIDE HCL 10 MG CAPSULE PO ONE (05:00)
== END 2025-01-06 12:20 | disposition home or self-care (01) | DRG 775 ==
LOC: YASAS 21:37 → Y6N 22:35
PROVIDERS: ADMIT Allergy & Immunology; ATTEND Family Medicine Addiction Medicine
PROC: HZ2ZZZZ Detoxification Services for Substance Abuse Treatment (ICD-10-PCS; principal; 2025-01-03)
DX: F10.230 Alcohol dependence with withdrawal, uncomplicated (principal); F17.210 Nicotine dependence, cigarettes, uncomplicated; F10.282 Alcohol dependence with alcohol-induced sleep disorder; F10.24 Alcohol dependence with alcohol-induced mood disorder; I10 Essential (primary) hypertension; R94.31 Abnormal electrocardiogram [ECG] [EKG]; R74.8 Abnormal levels of other serum enzymes; Z56.0 Unemployment, unspecified; Z59.00 Homelessness unspecified
CPT/HCPCS: 36415; 80053; 80305; 80307; 85027; 86480; 86780; 86803; 87389; 93005; 93010

== ENCOUNTER 2025-05-06 05:38 | Inpatient (IN) | payer OTHER ==
[2025-05-06 05:43] VITALS: BMI 24.9
[2025-05-06] MEDS ORDERED: DICYCLOMINE HCL 10 MG CAPSULE PO PRN (05:58)
[2025-05-06] MEDS ORDERED: ACETAMINOPHEN 325 MG TABLET (FP) PO PRN (05:58)
[2025-05-06] MEDS ORDERED: IBUPROFEN 600 MG TABLET (FP) PO PRN (05:58)
[2025-05-06] MEDS ORDERED: MAGNESIUM HYDROX 2400MG/30ML ORAL SUSPENSION 30 ML CUP PO PRN (05:58)
[2025-05-06] MEDS ORDERED: BENZOCAINE/MENTHOL (CHLORASEPTIC ) LOZENGE MM PRN (05:58)
[2025-05-06] MEDS ORDERED: POLYETHYLENE GLYCOL (HEALTHYLAX) 3350 17 GM PACKET PO PRN (05:58)
[2025-05-06] MEDS ORDERED: BISMUTH SUBSALICYLATE 524 MG/30 ML PO PRN (05:58)
[2025-05-06] MEDS ORDERED: IBUPROFEN 400 MG TABLET (FP) PO PRN (05:58)
[2025-05-06] MEDS ORDERED: guaiFENesin 600 MG TABLET.ER (FP) PO PRN (05:58)
[2025-05-06] MEDS ORDERED: NALOXONE (NARCAN) HCL 4 MG/0.1 ML SPRAY NS PRN (05:58)
[2025-05-06] MEDS ORDERED: NICOTINE POLACRILEX 2 MG LOZENGE BC PRN (05:58)
[2025-05-06] MEDS ORDERED: ONDANSETRON *ODT* 4 MG TABLET SL PRN (05:58)
[2025-05-06] MEDS ORDERED: BENZONATATE 200 MG CAPSULE PO PRN (05:58)
[2025-05-06] MEDS ORDERED: MAG HYDROX/AL HYDROX/SIMETH 30 ML UNIT-DOSE CUP PO PRN (05:58)
[2025-05-06] MEDS: PRENATAL VITAMINS W/ FOLIC ACID TABLET (FP) PO SCH (11:36)
[2025-05-06] MEDS: NICOTINE POLACRILEX 2 MG GUM BUC PRN (17:23)
[2025-05-06] MEDS: LOPERAMIDE HCL 2 MG CAPSULE PO PRN (18:28)
[2025-05-06] MEDS: MELATONIN 5 MG TABLETS PO SCH (22:26)
[2025-05-06] MEDS: THIAMINE 100 MG TABLET PO SCH (22:26)
[2025-05-07] MEDS: METHOCARBAMOL 500 MG TABLET PO PRN (10:31)
[2025-05-07] MEDS: hydrOXYzine PAMOATE 25 MG CAPSULE (FP) PO PRN (10:31)
[2025-05-07 12:20] LABS: MCHC 32.9 g/dl (32.3-36.5); MEAN CELL VOLUME 91.7 fl (79.0-92.2); MEAN PLT VOLUME 12.1 fl (9.4-12.4); RDW 12.1 % (12.0-15.6)
[2025-05-07] MEDS ORDERED: hydrOXYzine PAMOATE 25 MG CAPSULE (FP) PO PRN (13:36)
[2025-05-07 18:20] VITALS: BP 132/91; PULSE 93; RESP 17; TEMP 97.8
[2025-05-07] MEDS ORDERED: SUVOREXANT 10 MG TABLET PO PRN (22:00)
== END 2025-05-07 18:30 | disposition left against medical advice (07) | DRG 770 ==
LOC: YASAS 05:38 → Y6N 06:20
PROVIDERS: ADMIT Neuromusculoskeletal Medicine & OMM; ATTEND Counselor Addiction (Substance Use Disorder)
PROC: HZ2ZZZZ Detoxification Services for Substance Abuse Treatment (ICD-10-PCS; principal; 2025-05-06)
DX: F10.230 Alcohol dependence with withdrawal, uncomplicated (principal); F12.20 Cannabis dependence, uncomplicated; F17.210 Nicotine dependence, cigarettes, uncomplicated
CPT/HCPCS: 36415; 85027; 86780; 93005; 93010